=== PATIENT | female | born 1995 | race Caucasian/White ===

== ENCOUNTER 2019-09-11 18:24 | Emergency (ER) | payer BC ==
[~2019-09-11] VITALS: Ht 177.8 cm; Wt 102.1 kg
== END 2019-09-11 21:00 | disposition home or self-care (01) ==
LOC: ED 18:24
DX: O20.9 Hemorrhage in early pregnancy, unspecified (principal); Z3A.01 Less than 8 weeks gestation of pregnancy; Z87.891 Personal history of nicotine dependence; Z88.0 Allergy status to penicillin
CPT/HCPCS: 76801; 76817; 80048; 81001; 84702; 85025; 99284-25